=== PATIENT | female | born 1945 | race Caucasian/White ===

== ENCOUNTER 2016-08-18 16:28 | Emergency (ER) | payer MEDICARE, OTHER ==
[2016-08-18 21:33] LABS: HEMOGLOBIN 11.2 gm/dl (12.3-15.3); RED BLOOD COUNT 4.27 M/UL (4.00-5.10)
[2016-08-18 22:01] LABS: BUN/CREATININE RATIO 17 (0-10)
[2016-08-25] MEDS ORDERED: COLACE 100MG C100 MG PO (08:01)
[2016-08-25] MEDS ORDERED: DILTIAZEM 24HR180 MG PO (08:01)
[2016-08-25] MEDS ORDERED: ELIQUIS5 MG PO (08:01)
[2016-08-25] MEDS ORDERED: LEVOXYL175 MCG PO (08:02)
[2016-08-25] MEDS ORDERED: HYDROCHLOROTHIA25 MG PO (08:02)
[2016-08-25] MEDS ORDERED: PLAQUENIL 200200 MG PO (08:03)
[2016-08-25] MEDS ORDERED: NORCO 7.5-3251 EACH PO (08:03)
[2016-08-25] MEDS ORDERED: TOPROL XL25 MG PO (08:03)
[2016-08-25] MEDS ORDERED: SULFAZINE500 MG PO (08:06)
[2016-08-25] MEDS ORDERED: VITAMIN B-1100 MG/ML IM (08:07)
[2016-08-25] MEDS ORDERED: VITAMIN D250000 UNIT PO (08:07)
[2016-08-25] MEDS ORDERED: PROLIA INJ60 MG/1 ML SC (08:08)
[2016-08-25] MEDS ORDERED: LEVAQUIN500 MG PO (10:25)
== END 2016-08-18 22:25 | disposition home or self-care (01) ==
LOC: ER1 16:28
PROVIDERS: Emergency Medicine
DX: R00.2 Palpitations (principal); I10 Essential (primary) hypertension
CPT/HCPCS: 36415; 80053; 82550; 82553; 83874; 83880; 84484; 85025; 93005; 99285

== ENCOUNTER → 2016-08-24 | Outpatient (CLI) | payer MEDICARE, OTHER ==
[~2016-08-24] MED LIST: COLACE 100MG C100 MG PO; DILTIAZEM 24HR180 MG PO; ELIQUIS5 MG PO; HYDROCHLOROTHIA25 MG PO; LEVAQUIN500 MG PO; LEVOXYL175 MCG PO; NORCO 7.5-3251 EACH PO; PLAQUENIL 200200 MG PO; PROLIA INJ60 MG/1 ML SC; SULFAZINE500 MG PO; TOPROL XL25 MG PO; VITAMIN B-1100 MG/ML IM; VITAMIN D250000 UNIT PO
[2016-08-24 08:49] LABS: HEMOGLOBIN 10.8 gm/dl (12.3-15.3); RED BLOOD COUNT 4.15 M/UL (4.00-5.10); WHITE BLOOD COUNT 5.7 K/UL (4.5-11.0)
[2016-08-24 09:11] LABS: BUN/CREATININE RATIO 14 (0-10)
== END ==
LOC: LAB 08:17
PROVIDERS: Internal Medicine Cardiovascular Disease
DX: Z45.010 Encounter for checking and testing of cardiac pacemaker pulse generator [battery] (principal); I49.5 Sick sinus syndrome; I48.0 Paroxysmal atrial fibrillation; I47.2 Ventricular tachycardia; I10 Essential (primary) hypertension; R91.8 Other nonspecific abnormal finding of lung field
CPT/HCPCS: 36415; 71020; 80048; 85025

== ENCOUNTER → 2016-08-25 | Outpatient (CLI) | payer MEDICARE, SELFPAY | LOC: CATH 07:01 | DX: Z45.010 Encounter for checking and testing of cardiac pacemaker pulse generator [battery] (principal); I48.0 Paroxysmal atrial fibrillation; I49.5 Sick sinus syndrome; I10 Essential (primary) hypertension; I48.92 Unspecified atrial flutter; I47.2 Ventricular tachycardia; R00.2 Palpitations; E03.9 Hypothyroidism, unspecified; Z98.890 Other specified postprocedural states; Z88.5 Allergy status to narcotic agent; Z88.0 Allergy status to penicillin; Z79.01 Long term (current) use of anticoagulants; Z79.891 Long term (current) use of opiate analgesic; Z79.899 Other long term (current) drug therapy | CPT/HCPCS: C1785; J1200; J2250; J3010; J3370; J7040; J7050 ==

== ENCOUNTER 2020-05-03 05:11 | Inpatient (IN) | payer MEDICARE ==
[~2020-05-03] VITALS: Ht 160 cm; Wt 110.2 kg
[~2020-05-03 05:11] MED LIST changes: +AZULFIDINE 500500 MG PO; +NORCO 10-325 T1 EACH PO; +OXYCONTIN10 MG PO; +PREDNISONE5 MG PO; -TOPROL XL25 MG PO; +ULTRAM50 MG PO
[2020-05-03 06:16] LABS: HEMOGLOBIN 10.6 gm/dl (12.3-15.3); RED BLOOD COUNT 4.14 M/UL (4.00-5.10); WHITE BLOOD COUNT 13.7 K/UL (4.5-11.0)
[2020-05-03 06:46] LABS: BUN/CREATININE RATIO 20 (0-10)
[2020-05-03] MEDS ORDERED: LOPRESSOR 25 MG25 MG PO (08:03)
[2020-05-03] MEDS ORDERED: VOLTAREN ARTHRI20 GM TOP (09:28)
[2020-05-03] MEDS ORDERED: NEURONTIN 100100 MG PO ×2 (09:29→09:30)
[2020-05-03] MEDS ORDERED: XYLOCAINE 2% JE30 ML TOP (10:01)
[2020-05-03 17:37] LABS: HEMOGLOBIN 10.1 gm/dl (12.3-15.3)
[2020-05-04 03:03] LABS: HEMOGLOBIN 9.8 gm/dl (12.3-15.3); RED BLOOD COUNT 3.84 M/UL (4.00-5.10)
[2020-05-04 03:04] LABS: WHITE BLOOD COUNT 9.6 K/UL (4.5-11.0)
[2020-05-04 03:28] LABS: BUN/CREATININE RATIO 27 (0-10)
[2020-05-05 07:00] LABS: HEMOGLOBIN 7.9 gm/dl (12.3-15.3); WHITE BLOOD COUNT 10.8 K/UL (4.5-11.0)
[2020-05-05 07:06] LABS: RED BLOOD COUNT 3.06 M/UL (4.00-5.10)
[2020-05-05 07:31] LABS: BUN/CREATININE RATIO 39 (0-10)
[2020-05-06 11:56] LABS: HEMOGLOBIN 8.2 gm/dl (12.3-15.3); RED BLOOD COUNT 3.19 M/UL (4.00-5.10); WHITE BLOOD COUNT 8.9 K/UL (4.5-11.0)
[2020-05-06 12:22] LABS: BUN/CREATININE RATIO 39 (0-10)
[2020-05-08] MEDS ORDERED: LEVOTHYROXINE150 MCG PO (20:02)
[2020-05-08 21:01] LABS: BUN/CREATININE RATIO 21 (0-10)
[2020-05-09 03:24] LABS: HEMOGLOBIN 7.7 gm/dl (12.3-15.3); RED BLOOD COUNT 3.03 M/UL (4.00-5.10); WHITE BLOOD COUNT 10.1 K/UL (4.5-11.0)
[2020-05-09 03:46] LABS: BUN/CREATININE RATIO 24 (0-10)
[2020-05-09] MEDS ORDERED: DOCUSATE SODIU100 MG PO (09:11)
[2020-05-09] MEDS ORDERED: FERROUS SULFAT325 M2 PO (09:11)
[2020-05-09] MEDS ORDERED: FUROSEMIDE40 MG PO (09:11)
[2020-05-09] MEDS ORDERED: HYDROCODON-ACE1 EAC6 PO (15:00)
[2020-05-09] MEDS ORDERED: NEURONTIN100 MG PO (15:00)
[2020-05-09] MEDS ORDERED: NEURONTIN 100100 MG PO (15:00)
== END 2020-05-09 16:39 | DRG 481 ==
LOC: ER1 05:11 → M/S 05:43 → CDU 05:43 → M/S 06:30
PROVIDERS: Emergency Medicine; Internal Medicine; Orthopaedic Surgery; Physician Assistant Surgical; ADMIT Internal Medicine
PROC: 0QS706Z Reposition Left Upper Femur with Intramedullary Internal Fixation Device, Open Approach (ICD-10-PCS; principal; 2020-05-03 14:15)
DX: S72.22XA Displaced subtrochanteric fracture of left femur, initial encounter for closed fracture (principal); E87.1 Hypo-osmolality and hyponatremia; W01.0XXA Fall on same level from slipping, tripping and stumbling without subsequent striking against object, initial encounter; Z20.822 Contact with and (suspected) exposure to COVID-19; D50.9 Iron deficiency anemia, unspecified; I49.5 Sick sinus syndrome; E03.9 Hypothyroidism, unspecified; I10 Essential (primary) hypertension; M06.9 Rheumatoid arthritis, unspecified; R53.81 Other malaise; I48.0 Paroxysmal atrial fibrillation; Z79.01 Long term (current) use of anticoagulants; Z79.899 Other long term (current) drug therapy; Y92.009 Unspecified place in unspecified non-institutional (private) residence as the place of occurrence of the external cause; Z85.07 Personal history of malignant neoplasm of pancreas; Z85.43 Personal history of malignant neoplasm of ovary; Z90.49 Acquired absence of other specified parts of digestive tract; Z88.5 Allergy status to narcotic agent; Z88.0 Allergy status to penicillin; Z95.0 Presence of cardiac pacemaker
CPT/HCPCS: 36415; 71045; 72100; 72220; 73502; 73552; 76000; 80048; 80053; 82436; 82550; 82553; 83540; 83550; 84133; 84300; 84439; 84443; 84484; 85014; 85018; 85025; 85027; 86850; 86900; 86901; 93005; 96365; 96375; 96376; 97110; 97110-GP-CQ; 97162; 97165; 97530; 97530-GP-CQ; 99284; C1713; J1100; J1756; J2001; J2270; J2405; J2704; J2795; J3010; J3370; J7030; J7040; J7120; U0002